=== PATIENT | male | born 1985 | race Caucasian/White ===

== ENCOUNTER 2020-03-15 16:11 | Outpatient (CLI) | payer OTHER, SELFPAY ==
[2020-03-15 17:00] LABS: Basophils Absolute Auto 0.1 K/mm3 (0.0-0.1); Eosinophils Absolute Auto 0.2 K/mm3 (0-0.3); Eosinophils Percent Auto 2.1 % (0-4.4); Hematocrit 50.5 % (42.0-52.0); Hemoglobin 17.7 g/dL (14.0-18.0); Immature Granulocyte Absolute 0.03 K/mm3 (0.00-0.031); Immature Granulocyte Percent A 0.4 % (0-0.5); Lymphocytes Absolute Auto 2.15 K/mm3 (0.9-3.2); Lymphocytes Percent Auto 30.1 % (18.3-44.2); Mean Corpuscular Hemoglobin 30.4 pg (26-34); Mean Corpuscular Volume 86.8 fl (80-100); Mean Platelet Volume 8.9 fl (7.4-10.4); Monocytes Absolute Auto 0.6 K/mm3 (0.1-0.6); Monocytes Percent Auto 8.8 % (2.6-8.5); Neutrophils Absolute Auto 4.1 K/mm3 (1.3-6.7); Neutrophils Percent Auto 57.6 % (45.5-73.1); Platelet Count Result 292 k/mm3 (150-375); Red Blood Count 5.82 M/mm3 (4.6-6.20); Red Cell Distribution Width 13.1 % (11.5-14.5); White Blood Count 7.1 K/mm3 (4.5-10.0)
[2020-03-15 17:14] LABS: Alanine Aminotransferase 64 U/L (4-50); Albumin Level 4.4 g/dL (3.5-5.1); Alkaline Phosphatase 110 U/L (38-126); Anion Gap 11 mmol/L (8-16); Aspartate Amino Transferase 59 U/L (17-59); Bilirubin,Total 2.1 mg/dL (0.2-1.3); Blood Urea Nitrogen 13 mg/dL (9-20); Calcium 9.6 mg/dL (8.4-10.2); Carbon Dioxide 28 mmol/L (22-30); Chloride 99 mmol/L (98-107); Cholesterol 212 mg/dL (0-200); Estimated Glomerular Filt Rate > 60; Glucose 176 mg/dL (75-110); HDL Direct 41 mg/dL; Potassium 3.8 mmol/L (3.4-5.0); Sodium 138 mmol/L (137-145); Triglycerides 455 mg/dL (<150)
[2020-03-15 17:25] LABS: LDL Cholesterol Direct 99 mg/dL
[2020-03-15 17:43] LABS: Prostate Specific Antigen 0.4 ng/mL (< OR = 4.0); Total Triiodothyronine (T3) 1.57 NG/ML (0.97-1.69)
[2020-03-15 18:44] LABS: Creatinine Urine 263.5 mg/dL
[2020-03-15 18:49] LABS: MALB Creatinine Ratio 9.7 mg/g (0-30); Microalbumin Urine Random 25.6 mg/L (0-16.7)
[2020-03-15 19:21] LABS: Free T4 Free Thyroxine 1.27 ng/mL (0.78-2.19); Vitamin D 25 Hydroxy 17.9 ng/mL
== END 2020-03-15 16:12 | disposition home or self-care (01) ==
LOC: ANHLAB 16:15
PROVIDERS: PCP Family Medicine; Visit Provider Nurse Practitioner
DX: R73.03 Prediabetes (principal); I10 Essential (primary) hypertension; Z00.00 Encounter for general adult medical examination without abnormal findings
CPT/HCPCS: 36415; 80053; 80061; 82043; 82306; 83036; 84153; 84439; 84443; 84480; 85025; G0103

== ENCOUNTER 2020-10-14 10:19 | Outpatient (CLI) | payer OTHER, SELFPAY ==
[2020-10-14 10:48] LABS: Alanine Aminotransferase 68 U/L (4-50); Albumin Level 4.8 g/dL (3.5-5.1); Alkaline Phosphatase 96 U/L (38-126); Anion Gap 12 mmol/L (8-16); Aspartate Amino Transferase 50 U/L (17-59); Bilirubin,Total 1.4 mg/dL (0.2-1.3); Blood Urea Nitrogen 17 mg/dL (9-20); Calcium 9.9 mg/dL (8.4-10.2); Carbon Dioxide 23 mmol/L (22-30); Chloride 105 mmol/L (98-107); Cholesterol 181 mg/dL (0-200); Estimated Glomerular Filt Rate > 60; Glucose 246 mg/dL (75-110); HDL Direct 51 mg/dL; Potassium 4.2 mmol/L (3.4-5.0); Sodium 140 mmol/L (137-145); Triglycerides 242 mg/dL (<150); Uric Acid 8.9 mg/dL (3.5-8.5)
[2020-10-14 11:01] LABS: LDL Cholesterol Direct 76 mg/dL
[2020-10-14 11:54] LABS: Vitamin D 25 Hydroxy 22.7 ng/mL
[2020-10-14 12:37] LABS: Creatinine Urine 295.1 mg/dL
[2020-10-14 12:41] LABS: MALB Creatinine Ratio 11.2 mg/g (0-30)
[2020-10-14 13:30] LABS: Hemoglobin A1C 8.6 % (<5.7)
== END 2020-10-14 10:20 | disposition home or self-care (01) ==
PROVIDERS: PCP Internal Medicine; Visit Provider Internal Medicine
DX: E55.9 Vitamin D deficiency, unspecified (principal); E11.9 Type 2 diabetes mellitus without complications; Z87.39 Personal history of other diseases of the musculoskeletal system and connective tissue; E78.2 Mixed hyperlipidemia
CPT/HCPCS: 36415; 80053; 80061; 82043; 82306; 83036; 84550

== ENCOUNTER 2020-11-21 07:23 | Outpatient (CLI) | payer OTHER, SELFPAY ==
--- NOTE | 2020-11-21 07:24 | ECHO_ITS ---
Patient Info Name: Mesfin Kaur Age: 35 years : 1985 Gender: Male Ht: 76 in Wt: 308 lbs BSA: 2.78 m2 HR: 92 bpm BP: 109 / 73 mmHg Technical Quality: Fair Exam Date: 11/21/2020 7:55 AM Exam Location: [facility] Patient Status: Outpatient Admit Date: 11/21/2020 Staff Ordering Physician: Andrae Linn DO Raw Juice Weigher: Gela Fernandez RDCS Attending Provider: Andrae Linn DO Exam Type: CA echo doppler color flow Study Info Indications E78.5 - Hyperlipidemia, unspecified Complete two-dimensional, color flow and Doppler transthoracic echocardiogram is performed. Summary 1. Complete two-dimensional, color flow and Doppler transthoracic echocardiogram is performed. 2. Left ventricular chamber dimension is normal. 3. Left ventricular systolic function is normal, estimated at 55-60%. 4. The left ventricular diastolic function is grade I diastolic dysfunction. 5. E/e' 7 is not elevated. 6. Global longitudinal strain is abnormal at -12.8%. 7. No pulmonary hypertension, estimated pulmonary arterial systolic pressure is 19 mmHg. Left Ventricle E/e' 7 is not elevated. Global longitudinal strain is abnormal at -12.8%. Left ventricular chamber dimension is normal. Left ventricular systolic function is normal, estimated at 55-60%. The left ventricular diastolic function is grade I diastolic dysfunction. Right Ventricle Right ventricular chamber dimension is normal. Right ventricular systolic function is normal. Left Atria Left atrial chamber dimension is normal. Right Atria Right atrial chamber dimension is normal. Aortic Valve The aortic valve is trileaflet. There is no aortic valve stenosis. There is no aortic valve regurgitation. Pulmonic Valve There is no pulmonic regurgitation. Mitral Valve There is no mitral valve stenosis. There is no mitral valve regurgitation. Tricuspid Valve There is no tricuspid valve regurgitation. No pulmonary hypertension, estimated pulmonary arterial systolic pressure is 19 mmHg. Pericardium/Pleural There is no pericardial effusion. Inferior Vena Cava Normal inferior vena cava with >50% collapse upon inspiration consistent with normal right atrial pressure, 5 mmHg. Aorta The aortic root size at the sinus of Valsalva is normal. Left Ventricular Outflow Tract Name Value Normal LVOT 2D LVOT Diameter 2.2 cm LVOT Doppler LVOT Peak Gradient 3 mmHg LVOT Mean Gradient 2 mmHg LVOT VTI 16 cm LVOT VTI/AV VTI Ratio 1.1 LVOT Stroke Volume 62 ml LVOT CO 5.2 l/min LVOT CI 1.9 l/min/m2 Pulmonic Valve Name Value Normal RVOT Doppler RVOT Peak Gradient 2 mmHg
--- NOTE | 2020-11-21 07:25 | EST_ITS ---
Patient Info Name: Mesfin Kaur Age: 35 years : 1985 Gender: Male Ht: 76 in Wt: 308 lbs BSA: 2.78 m2 HR: 88 bpm BP: 109 / 73 mmHg Exam Date: 11/21/2020 8:38 AM Exam Location: [facility] Pul[facility] Patient Status: Outpatient Admit Date: 11/21/2020 Staff Ordering Physician: Andrae Linn DO Time Recorder: Latrice William RDCS Attending Provider: ANDRAE LINN DO Exercise Technologist: Gela Fernandez RDCS Exercise Physician: Andrae Linn DO Exam Type: CA stress echo Study Info Indications E78.5 - Hyperlipidemia, unspecified Treadmill exercise stress echocardiogram is performed. Summary 1. 1. Negative Danis exercise stress test for ischemic ST changes by ECG criteria. 2. 2. Mildly reduced functional capacity, achieving 11 METs of workload. 3. 3. Appropriate HR response to exercise. 4. 4. Appropriate HR recovery at 1 minute post exercise. 5. 5. Hypertensive response to exercise. 6. 6. Negative stress echocardiogram for ischemia by wall motion analysis. 7. 7. Patient informed of the above results. Stress Echo Findings Left Ventricle Appropriate increase in LV endocardial thickening with systole. Appropriate augmentation of contractility with systole. No wall motion abnormality. Left Ventricle Normal LV systolic function, no wall motion abnormality. Protocol: Danis Stress ECG Details Stage: REST Duration (min): 1 min : 1 sec Speed (mph): 0.0 Grade (%): 0 HR (bpm): 89 SBP (mmHg): 109 DBP (mmHg): 73 METS: --- Stage: REST Duration (min): 9 min : 9 sec Speed (mph): 0.0 Grade (%): 0 HR (bpm): 107 SBP (mmHg): 109 DBP (mmHg): 73 METS: --- Stage: STAGE 1 Duration (min): 1 min : 0 sec Speed (mph): 1.7 Grade (%): 10 HR (bpm): 112 SBP (mmHg): 109 DBP (mmHg): 73 METS: --- Stage: STAGE 1 Duration (min): 2 min : 0 sec Speed (mph): 1.7 Grade (%): 10 HR (bpm): 119 SBP (mmHg): 109 DBP (mmHg): 73 METS: --- Stage: STAGE 1 Duration (min): 3 min : 0 sec Speed (mph): 1.7 Grade (%): 10 HR (bpm): 122 SBP (mmHg): 134 DBP (mmHg): 67 METS: --- Stage: STAGE 2 Duration (min): 1 min : 0 sec Speed (mph): 2.5 Grade (%): 12 HR (bpm): 126 SBP (mmHg): 134 DBP (mmHg): 67 METS: --- Stage: STAGE 2 Duration (min): 2 min : 0 sec Speed (mph): 2.5 Grade (%): 12 HR (bpm): 135 SBP (mmHg): 130 DBP (mmHg): 66 METS: --- Stage: STAGE 2 Duration (min): 3 min : 0 sec Speed (mph): 2.5 Grade (%): 12 HR (bpm): 136 SBP (mmHg): 130 DBP (mmHg): 66 METS: --- Stage: STAGE 3 Duration (min): 1 min : 0 sec Speed (mph): 3.4 Grade (%): 14 HR (bpm): 150 SBP (mmHg): 167 DBP (mmHg): 63 METS: --- Stage: STAGE 3 Duration (min): 2 min : 0 sec Speed (mph): 3.4 Grade (%): 14 HR (bpm): 155 SBP (mmHg): 167 DBP (mmHg): 63 METS: --- Stage: STAGE 3 Duration (min): 3 min
== END 2020-11-21 07:24 | disposition home or self-care (01) ==
LOC: ANHCARD 07:23
PROVIDERS: PCP Internal Medicine; Visit Provider Internal Medicine Cardiovascular Disease
DX: E78.5 Hyperlipidemia, unspecified (principal); R03.0 Elevated blood-pressure reading, without diagnosis of hypertension; I50.1 Left ventricular failure, unspecified; E11.9 Type 2 diabetes mellitus without complications; Z79.84 Long term (current) use of oral hypoglycemic drugs
CPT/HCPCS: 93306; 93351

== ENCOUNTER 2021-02-24 09:51 | Outpatient (CLI) | payer OTHER, SELFPAY ==
[2021-02-24 10:13] LABS: Basophils Absolute Auto 0.1 K/mm3 (0.0-0.1); Basophils Percent Auto 1.1 % (0.2-1.2); Eosinophils Absolute Auto 0.2 K/mm3 (0-0.3); Eosinophils Percent Auto 3.3 % (0-4.4); Hematocrit 44.5 % (42.0-52.0); Hemoglobin 15.5 g/dL (14.0-18.0); Immature Granulocyte Absolute 0.02 K/mm3 (0.00-0.031); Immature Granulocyte Percent A 0.3 % (0-0.5); Lymphocytes Absolute Auto 1.73 K/mm3 (0.9-3.2); Lymphocytes Percent Auto 27.2 % (18.3-44.2); Mean Corpuscular HGB Conc 34.8 g/dl (32-36); Mean Corpuscular Hemoglobin 31.2 pg (26-34); Mean Corpuscular Volume 89.5 fl (80-100); Mean Platelet Volume 8.9 fl (7.4-10.4); Monocytes Absolute Auto 0.5 K/mm3 (0.1-0.6); Monocytes Percent Auto 8.5 % (2.6-8.5); Neutrophils Absolute Auto 3.8 K/mm3 (1.3-6.7); Neutrophils Percent Auto 59.6 % (45.5-73.1); Platelet Count Result 273 k/mm3 (150-375); Red Blood Count 4.97 M/mm3 (4.6-6.20); Red Cell Distribution Width 13.3 % (11.5-14.5); White Blood Count 6.4 K/mm3 (4.5-10.0)
[2021-02-24 10:24] LABS: Hemoglobin A1C 8.7 % (<5.7)
[2021-02-24 10:29] LABS: Alanine Aminotransferase 53 U/L (4-50); Albumin Level 4.3 g/dL (3.5-5.1); Alkaline Phosphatase 81 U/L (38-126); Anion Gap 10 mmol/L (8-16); Aspartate Amino Transferase 53 U/L (17-59); Bilirubin,Total 1.7 mg/dL (0.2-1.3); Blood Urea Nitrogen 12 mg/dL (9-20); Calcium 9.3 mg/dL (8.4-10.2); Carbon Dioxide 26 mmol/L (22-30); Chloride 102 mmol/L (98-107); Estimated Glomerular Filt Rate > 60; Glucose 201 mg/dL (65-110); Potassium 4.4 mmol/L (3.4-5.0); Sodium 138 mmol/L (137-145); Uric Acid 6.4 mg/dL (3.5-8.5)
[2021-02-24 10:55] LABS: Creatinine Urine 101.6 mg/dL
[2021-02-24 11:02] LABS: Microalbumin Urine Random < 6.0 mg/L (0-16.7)
[2021-02-24 11:03] LABS: MALB Creatinine Ratio < 5.9 mg/g (0-30)
== END 2021-02-24 09:52 | disposition home or self-care (01) ==
PROVIDERS: PCP Internal Medicine; Visit Provider Internal Medicine
DX: E11.9 Type 2 diabetes mellitus without complications (principal); E78.5 Hyperlipidemia, unspecified; Z87.39 Personal history of other diseases of the musculoskeletal system and connective tissue
CPT/HCPCS: 36415; 80053; 82043; 83036; 84550; 85025

== ENCOUNTER 2021-11-30 10:46 | Outpatient (CLI) | payer OTHER, SELFPAY ==
[2021-11-30 12:15] LABS: Alanine Aminotransferase 63 U/L (6-50); Albumin Level 4.8 g/dL (3.5-5.1); Alkaline Phosphatase 102 U/L (38-126); Anion Gap 14 mmol/L (8-16); Aspartate Amino Transferase 58 U/L (17-59); Bilirubin,Total 2.2 mg/dL (0.2-1.3); Blood Urea Nitrogen 12 mg/dL (9-20); Calcium 9.4 mg/dL (8.4-10.2); Carbon Dioxide 22 mmol/L (22-30); Chloride 102 mmol/L (98-107); Cholesterol 146 mg/dL (0-200); Estimated Glomerular Filt Rate > 60; Glucose 237 mg/dL (65-110); HDL Direct 42 mg/dL; Sodium 138 mmol/L (137-145); Triglycerides 290 mg/dL (<150)
[2021-11-30 12:26] LABS: LDL Cholesterol Direct 48 mg/dL
[2021-11-30 12:34] LABS: Uric Acid 6.1 mg/dL (3.5-8.5)
[2021-11-30 13:03] LABS: Hemoglobin A1C 9.7 % (<5.7)
[2021-11-30 13:06] LABS: Microalbumin Urine Random 51.2 mg/L (0-16.7)
[2021-11-30 13:07] LABS: Creatinine Urine 241.2 mg/dL; MALB Creatinine Ratio 21.2 mg/g (0-30)
== END 2021-11-30 10:47 | disposition home or self-care (01) ==
LOC: ANHLAB 10:55
PROVIDERS: PCP Internal Medicine; Visit Provider Internal Medicine
DX: E79.0 Hyperuricemia without signs of inflammatory arthritis and tophaceous disease (principal); E11.9 Type 2 diabetes mellitus without complications; E78.2 Mixed hyperlipidemia
CPT/HCPCS: 36415; 80053; 80061; 82043; 83036; 84550

== ENCOUNTER → 2021-12-13 08:39 | Outpatient (CLI) | payer SELFPAY ==
--- NOTE | ~2021-12-13 | XR_ITS ---
XR UGIAC w barium swallow DATE: 12/13/2021 09:51 INDICATION: Gastric esophageal reflux. Upper abdominal mass. TECHNIQUE: Fluoroscopy, rapid sequence spot images of the esophagus during swallowing of barium. Fluo roscopy, spot and overhead images of the esophagus, stomach and duodenum during and after oral ingest ion of barium. 1.6 minutes fluoroscopy time 58.287 Gycm2 total DAP 148 images COMPARISON: None FINDINGS: There is normal deglutition and esophageal peristalsis. No stricture, mucosal fold thickeni ng, erosion, ulceration or intraluminal mass lesion of the esophagus, stomach or duodenum. Normal duo denal C-loop. Normal position of the ligament of Treitz. Normal proximal small bowel callosal IMPRESSION: Normal examination Reviewed, dictated and finalized at [facility]. Reviewed, dictated and finalized at [facility]. IMPRESSION: Normal examination
--- NOTE | ~2021-12-13 | CT_ITS ---
EXAMINATION: CT abdomen wo con DATE: 12/13/2021 09:13 INDICATION: Upper abdominal mass TECHNIQUE: Computed tomography (CT) of the abdomen was performed without intravenous contrast. A BB m arker was placed on the skin over the area of clinical complaint. Automated exposure control and iter ative reconstruction technique were employed. Exam dose: 907.64 mGy-cm total exam DLP. COMPARISON: None. FINDINGS: The area of clinical complaint of breast mass corresponds to the xiphoid process of the nguyen rnum, a normal structure. Left lower lung zones are clear. Normal heart size. No pericardial or pleural effusion. There is diffuse hepatic steatosis with minimal sparing around the gallbladder. No hepatic, splenic, pancreatic, and adrenal or renal space-occupying mass lesion is detected. No bile duct or pancreatic duct dilatation. No urinary tract calculus or hydroureteronephrosis. Normal caliber and mild calcification of the abdominal aorta. No intraperitoneal or retroperitoneal m ass lesion or adenopathy or ascites. Small fat-containing umbilical hernia. No suspicious osteolytic or osteoblastic lesions are noted. IMPRESSION: Clinical complaint of abdominal mass corresponds to the normal xiphoid process of the st ernum Hepatic steatosis Reviewed, dictated and finalized at [facility]. Reviewed, dictated and finalized at location [facility]. IMPRESSION: Clinical complaint of abdominal mass corresponds to the normal xip hoid process of the sternum Hepatic steatosis
== END ==
PROVIDERS: PCP Internal Medicine; Visit Provider Internal Medicine
DX: R19.09 Other intra-abdominal and pelvic swelling, mass and lump (principal); K21.9 Gastro-esophageal reflux disease without esophagitis; K76.0 Fatty (change of) liver, not elsewhere classified
CPT/HCPCS: 74150; 74246

== ENCOUNTER 2022-08-11 19:02 | Emergency (ER) | payer OTHER, SELFPAY ==
--- NOTE | ~2022-08-11 | CT_ITS ---
EXAMINATION: CT abdomen pelvis w con DATE: 08/11/2022 21:32 INDICATION: Perirectal abscess concern TECHNIQUE: Computed tomography (CT) of the abdomen and pelvis was performed with 100 CC Omnipaque 350 intravenous contrast. Automated exposure control and iterative reconstruction technique were employe d. Exam dose: 2036.37 mGy-cm total exam DLP. COMPARISON: 12/13/2021 CT abdomen FINDINGS: The lung bases are clear. Normal heart size. No pericardial or pleural effusion. The gallbladder is contracted. The liver, spleen, pancreas, and adrenal glands and kidneys are unrema rkable. No bile duct or pancreatic duct dilatation. No urinary tract calculus or hydroureteronephrosi s. Retroaortic left renal vein. Normal caliber of the abdominal aorta. No intraperitoneal or retroperitoneal or pelvic mass lesion or adenopathy or ascites. Bilateral vas deferens calcifications which is usually associated with diabetes. Minimal prostate arnav cification. The urinary bladder is unremarkable. No perirectal abscess is identified. No bowel obstruction, bowel wall thickening, pneumatosis or intraperitoneal free air. Small fat-containing umbilical hernia. Included skeletal structures are unremarkable. IMPRESSION: Bilateral vas deferens calcifications, usually associated with diabetes No perirectal abscess is identified Reviewed, dictated and finalized at [facility]. Reviewed, dictated and finalized at location [facility]. IMPRESSION: Bilateral vas deferens calcifications, usually associated with margarette betes No perirectal abscess is identified
--- NOTE | 2022-08-11 19:42 | ED.GENADULT ---
HPI - General Adult General Chief complaint: Skin/Abscess/Foreign Body <Maritza Dobbins PA-C - Last Filed: 08/12/22 03:35> Stated complaint: anal fissures <Marizta Dobbins PA-C - Last Filed: 08/12/22 03:35> Time Seen by Provider: 08/11/22 19:21 <Maritza Dobbins PA-C - Last Filed: 08/12/22 03:35> History of Present Illness HPI narrative: 37-year-old male with a history of anal fissures, diabetes, GERD, hypertension reports for evaluation of sharp, tearing rectal pain for 3 weeks, worsening today. Patient was diagnosed with anal fissures and saw Dr. Vick (colorectal surgery) 2 years ago, underwent a treatment and was given medications with resolution of anal fissures and pain. States 3 weeks ago he was helping his friend move a heavy piece of furniture and the next day began having rectal pain. Reports the pain was only present with bowel movements and sitting, however today it is present all the time. Patient is also complaining of a dull ache in addition to the sharp tearing pain. Patient has been taking Metamucil, doing sitz baths, applied panicura 2x and has been taking ibuprofen without relief. He has not noticed any blood in his stool or on toilet paper in the past 3 weeks. Pt reports this pain is different and worse than his previous experience with anal fissures. Denies melena, nausea or vomiting, abdominal pain, fever, body aches, chills, CP, SOB. <Maritza Dobbins PA-C - Last Filed: 08/12/22 03:35> Related Data Allergies/adverse reactions: Allergies Allergy/AdvReac Type Severity Reaction Status Date / Time No Known Allergies Allergy Unverified 12/05/21 15:20 <Maritza Dobbins PA-C - Last Filed: 08/12/22 03:35> Review of Systems Review of Systems: CONSTITUTIONAL: Denies fever, chills EYES: Denies visual changes, redness, or discharge. ENT: Denies rhinorrhea, congestion, sore throat, or otalgia. CARDIOVASCULAR: Denies chest pain, palpitations, or edema. RESPIRATORY: Denies cough or dyspnea. GASTROINTESTINAL: Denies abdominal pain, nausea, vomiting, or diarrhea. GENITOURINARY: Denies dysuria or hematuria. SKIN: Denies rash or itching. MUSCULOSKELETAL: Denies back pain, joint pain, or myalgia. NEUROLOGIC: Denies headache, numbness, dizziness, or weakness. PSYCHIATRIC: Denies anxiety or depression. <Maritza Dobbins PA-C - Last Filed: 08/12/22 03:35> PMFSH Past Medical History Medical History: Medical History Acute bronchitis, unspecified Allergies Diabetes Elevated blood-pressure reading without diagnosis of hypertension GERD (gastroesophageal reflux disease) Idiopathic chronic gout without tophus Tibia and fibula open fracture, right Wellness examination <Maritza Dobbins PA-C - Last Filed: 08/12/22 03:35> Family History Family History: Family History Mother Family history of malignant neoplasm, Onset Age: 38 Patient's mother is Diabetes mellitus Father Family history of heart disease in male family member before age 55, Onset Age: 41 Patient's father is Alcoholism Hypertension Heart disease Depression with anxiety Sibling Asthma Diabetes mellitus Grandparent Family history of malignant neoplasm Alcoholism Hypertension Depression with anxiety Heart disease <Maritza Dobbins PA-C - Last Filed: 08/12/22 03:35> Social History Social History: Social History Smoking status: Never smoker Second hand tobacco smoke exposure: Yes Alcohol intake: never Substance use: never Substance use type: does not use Other substance usage details: Tea usage <Maritza Dobbins PA-C - Last Filed: 08/12/22 03:35> Exam Narrative: GENERAL: Well-appearing, well-nourished, and in no acute distress. Appears uncomfortabl
[2022-08-11] MEDS: SODIUM CHLORIDE 0.9% IV 1,000 ML 999 ML IV CONT (20:21)
[2022-08-11] MEDS: KETOROLAC 15 MG/ML VIAL (*BKC) IV PUSH ×2 (20:21→21:56)
[2022-08-11 20:23] LABS: Basophils Absolute Auto 0.1 K/mm3 (0.0-0.1); Eosinophils Absolute Auto 0.2 K/mm3 (0-0.3); Eosinophils Percent Auto 2.3 % (0-4.4); Hemoglobin 17.6 g/dL (14.0-18.0); Immature Granulocyte Absolute 0.02 K/mm3 (0.00-0.031); Immature Granulocyte Percent A 0.3 % (0-0.5); Lymphocytes Absolute Auto 2.08 K/mm3 (0.9-3.2); Lymphocytes Percent Auto 28.3 % (18.3-44.2); Mean Corpuscular HGB Conc 35.2 g/dl (32-36); Mean Corpuscular Hemoglobin 30.8 pg (26-34); Mean Corpuscular Volume 87.4 fl (80-100); Mean Platelet Volume 8.9 fl (7.4-10.4); Monocytes Absolute Auto 0.7 K/mm3 (0.1-0.6); Monocytes Percent Auto 9.4 % (2.6-8.5); Neutrophils Absolute Auto 4.3 K/mm3 (1.3-6.7); Neutrophils Percent Auto 58.7 % (45.5-73.1); Platelet Count Result 310 k/mm3 (150-375); Red Blood Count 5.72 M/mm3 (4.6-6.20); Red Cell Distribution Width 13.6 % (11.5-14.5); White Blood Count 7.3 K/mm3 (4.5-10.0)
[2022-08-11 20:40] LABS: Alanine Aminotransferase 39 U/L (6-50); Albumin Level 4.6 g/dL (3.5-5.1); Alkaline Phosphatase 114 U/L (38-126); Anion Gap 11 mmol/L (8-16); Aspartate Amino Transferase 34 U/L (17-59); Bilirubin,Total 1.3 mg/dL (0.2-1.3); Blood Urea Nitrogen 14 mg/dL (9-20); Calcium 9.3 mg/dL (8.4-10.2); Carbon Dioxide 22 mmol/L (22-30); Chloride 106 mmol/L (98-107); Estimated Glomerular Filt Rate > 60; Glucose 311 mg/dL (65-110); Sodium 139 mmol/L (137-145)
== END 2022-08-12 01:55 | disposition home or self-care (01) ==
PROVIDERS: Emergency Provider Physician Assistant; PCP Internal Medicine
DX: K60.2 Anal fissure, unspecified (principal); I10 Essential (primary) hypertension; E11.9 Type 2 diabetes mellitus without complications; K21.9 Gastro-esophageal reflux disease without esophagitis; M1A.00X1 Idiopathic chronic gout, unspecified site, with tophus (tophi); Z79.84 Long term (current) use of oral hypoglycemic drugs
CPT/HCPCS: 36415; 74177; 80053; 85025; 96361; 96374; 96376; 99284; J1885; J7030; Q9967

== ENCOUNTER 2022-12-08 08:19 | Outpatient (CLI) | payer OTHER, SELFPAY ==
[2022-12-08 09:50] LABS: Hemoglobin A1C 8.9 % (<5.7)
[2022-12-08 09:55] LABS: Alanine Aminotransferase 43 U/L (6-50); Albumin Level 4.2 g/dL (3.5-5.1); Alkaline Phosphatase 87 U/L (38-126); Anion Gap 7 mmol/L (8-16); Aspartate Amino Transferase 37 U/L (17-59); Bilirubin,Total 1.8 mg/dL (0.2-1.3); Blood Urea Nitrogen 14 mg/dL (9-20); Calcium 8.8 mg/dL (8.4-10.2); Carbon Dioxide 25 mmol/L (22-30); Chloride 103 mmol/L (98-107); Cholesterol 154 mg/dL (0-200); Estimated Glomerular Filt Rate > 60; Glucose 171 mg/dL (65-110); HDL Direct 44 mg/dL; Potassium 4.4 mmol/L (3.4-5.0); Sodium 135 mmol/L (137-145); Triglycerides 237 mg/dL (<150); Uric Acid 5.8 mg/dL (3.5-8.5)
[2022-12-08 10:03] LABS: LDL Cholesterol Direct 71 mg/dL
[2022-12-08 10:19] LABS: Microalbumin Urine Random 6.8 mg/L (0-16.7)
[2022-12-08 10:26] LABS: Creatinine Urine 98.9 mg/dL; MALB Creatinine Ratio 6.9 mg/g (0-30)
== END 2022-12-08 08:20 | disposition home or self-care (01) ==
PROVIDERS: PCP Family Medicine; Visit Provider Nurse Practitioner Family
DX: E11.9 Type 2 diabetes mellitus without complications (principal); E78.5 Hyperlipidemia, unspecified; Z87.39 Personal history of other diseases of the musculoskeletal system and connective tissue
CPT/HCPCS: 36415; 80053; 80061; 82043; 83036; 84550

== ENCOUNTER 2023-08-14 14:29 | Outpatient (CLI) | payer OTHER, SELFPAY ==
[2023-08-14 15:16] LABS: Alanine Aminotransferase 54 U/L (6-50); Albumin Level 4.9 g/dL (3.5-5.1); Alkaline Phosphatase 101 U/L (38-126); Anion Gap 9 mmol/L (4-12); Aspartate Amino Transferase 46 U/L (17-59); Bilirubin,Total 2.6 mg/dL (0.2-1.3); Blood Urea Nitrogen 15 mg/dL (9-20); Calcium 9.8 mg/dL (8.4-10.2); Carbon Dioxide 25 mmol/L (22-30); Chloride 101 mmol/L (98-107); Cholesterol 146 mg/dL (0-200); Estimated Glomerular Filt Rate > 60; Glucose 135 mg/dL (65-110); HDL Direct 45 mg/dL; Potassium 3.5 mmol/L (3.4-5.0); Sodium 135 mmol/L (137-145); Triglycerides 302 mg/dL (<150)
[2023-08-14 15:27] LABS: LDL Cholesterol Direct 77 mg/dL
[2023-08-14 16:43] LABS: Hemoglobin A1C 8.2 % (<5.7)
== END 2023-08-14 14:30 | disposition home or self-care (01) ==
LOC: ANHLAB 14:31
PROVIDERS: PCP Nurse Practitioner; Visit Provider Nurse Practitioner
DX: E78.5 Hyperlipidemia, unspecified (principal); E11.9 Type 2 diabetes mellitus without complications
CPT/HCPCS: 36415; 80053; 80061; 83036

== ENCOUNTER 2024-07-06 14:38 | Outpatient (CLI) | payer OTHER, SELFPAY ==
[2024-07-06 15:07] LABS: Hematocrit 52.7 % (42.0-52.0); Hemoglobin 17.8 g/dL (14.0-18.0); Mean Corpuscular HGB Conc 33.8 g/dl (32-36); Mean Corpuscular Hemoglobin 30.5 pg (26-34); Mean Corpuscular Volume 90.4 fl (80-100); Mean Platelet Volume 8.6 fl (7.4-10.4); Platelet Count Result 281 k/mm3 (150-375); Red Blood Count 5.83 M/mm3 (4.6-6.20); Red Cell Distribution Width 14.2 % (11.5-14.5)
[2024-07-06 15:19] LABS: Alanine Aminotransferase 32 U/L (6-50); Albumin Level 4.7 g/dL (3.5-5.1); Alkaline Phosphatase 71 U/L (38-126); Anion Gap 7 mmol/L (4-12); Aspartate Amino Transferase 30 U/L (17-59); Bilirubin,Total 2.1 mg/dL (0.2-1.3); Blood Urea Nitrogen 13 mg/dL (9-20); Calcium 9.8 mg/dL (8.4-10.2); Carbon Dioxide 30 mmol/L (22-30); Chloride 104 mmol/L (98-107); Estimated Glomerular Filt Rate > 60; Glucose 100 mg/dL (65-110); Potassium 4.7 mmol/L (3.4-5.0); Sodium 141 mmol/L (137-145); Uric Acid 5.7 mg/dL (3.5-8.5)
[2024-07-06 16:16] LABS: Creatinine Urine 104.1 mg/dL
[2024-07-06 16:43] LABS: Vitamin D 25 Hydroxy 24.8 ng/mL
[2024-07-06 17:01] LABS: Hemoglobin A1C 5.5 % (<5.7)
[2024-07-06 17:16] LABS: MALB Creatinine Ratio < 5.8 mg/g (0-30); Microalbumin Urine Random < 6.0 mg/L (0-16.7)
== END 2024-07-06 14:39 | disposition home or self-care (01) ==
LOC: ANHLAB 14:41
PROVIDERS: PCP Family Medicine; Visit Provider Family Medicine
DX: E78.5 Hyperlipidemia, unspecified (principal); E11.9 Type 2 diabetes mellitus without complications; R00.2 Palpitations; E55.9 Vitamin D deficiency, unspecified; Z87.39 Personal history of other diseases of the musculoskeletal system and connective tissue
CPT/HCPCS: 36415; 80053; 82043; 82306; 83036; 84550; 85027

== ENCOUNTER 2025-02-12 10:01 | Outpatient (CLI) | payer OTHER, SELFPAY ==
[2025-02-12 10:19] LABS: Hematocrit 48.7 % (42.0-52.0); Hemoglobin 17.1 g/dL (14.0-18.0); Immature Granulocyte Percent A 0.3 % (0-0.5); Lymphocytes Absolute Auto 1.95 K/mm3 (0.9-3.2); Mean Corpuscular HGB Conc 35.1 g/dl (32-36); Mean Corpuscular Hemoglobin 31.0 pg (26-34); Mean Corpuscular Volume 88.2 fl (80-100); Nucleated Red Blood Cells Absolute Auto 0.000 K/mm3 (0.0-0.012); Nucleated Red Blood Cells Perc 0.0 % (0.0-0.2); Platelet Count Result 284 k/mm3 (150-375); Red Blood Count 5.52 M/mm3 (4.6-6.20); White Blood Count 7.0 K/mm3 (4.5-10.0)
[2025-02-12 11:46] LABS: Hemoglobin A1C 5.2 % (<5.7)
== END 2025-02-12 10:02 | disposition home or self-care (01) ==
LOC: ANHLAB 10:03
PROVIDERS: PCP Family Medicine; Visit Provider Family Medicine
DX: R71.8 Other abnormality of red blood cells (principal); E11.9 Type 2 diabetes mellitus without complications
CPT/HCPCS: 36415; 83036; 85025